=== PATIENT | male | born 1995 | race African-American/Black ===

== ENCOUNTER 2017-07-27 17:31 | Emergency (ER) | payer SELFPAY ==
[~2017-07-27] VITALS: Ht 180.3 cm; Wt 76.7 kg
[2017-07-27 22:22] VITALS: BP 136/66
== END 2017-07-27 22:22 | disposition home or self-care (01) ==
LOC: EME 17:31
DX: M25.561 Pain in right knee (principal)
CPT/HCPCS: 73564; 99281; 99283